=== PATIENT | female | born 1980 | race Caucasian/White ===

== ENCOUNTER 2017-05-08 00:13 | Emergency (ER) | payer MEDICAID ==
[2017-05-08 01:02] VITALS: TEMP 98.1
[2017-05-08] MEDS ORDERED: Morphine 2 mg/ml ISec IVP STA (01:10)
--- NOTE | 2017-05-08 01:13 | ED PDOC ---
Arrival/HPI - General Chief Complaint: Abdominal Pain Time Seen by Provider: 05/08/17 00:17 Historian: Patient - History of Present Illness Narrative History of Present Illness (Text): 05/08/17 01:12 A 36 year old female, whose past medical history includes hyperlipidemia, hypothyroidism and gastritis, presents to the emergency department complaining of epigastric abdominal discomfort radiating to her back, that developed this afternoon after eating. Patient notes some nausea but denies any shortness of breath, fever, chills, vomiting, diarrhea or any other complaints at this time. Symptom Onset: Sudden Symptom Course: Unchanged Activities at Onset: Rest Context: Home Past Medical History - Provider Review Nursing Documentation Reviewed: Yes - Infectious Disease Hx of Infectious Diseases: None - Psychiatric Hx Substance Use: No Family/Social History - Physician Review Nursing Documentation Reviewed: Yes Family/Social History: No Known Family HX Smoking Status: Never Smoked Hx Alcohol Use: No Hx Substance Use: No Allergies/Home Meds Allergies/Adverse Reactions: Allergies No Known Allergies Allergy (Verified 05/08/17 00:49) Review of Systems - Physician Review All systems were reviewed & negative as marked: Yes - Review of Systems Constitutional: absent: Fevers, Other (chills) Respiratory: absent: SOB Gastrointestinal: Abdominal Pain (epigastric discomfort radiating to back), Nausea. absent: Diarrhea, Vomiting Physical Exam Vital Signs Reviewed: Yes Vital Signs Temp Pulse Resp BP Pulse Ox 05/08/17 07:01 61 16 101/63 99 05/08/17 04:05 59 L 16 114/59 L 100 05/08/17 00:36 98.1 F 70 18 154/75 H 99 Temperature: Afebrile Blood Pressure: Hypertensive Pulse: Regular Respiratory Rate: Normal Appearance: Positive for: Well-Appearing, Non-Toxic, Comfortable Pain Distress: None Mental Status: Positive for: Alert and Oriented X 3 - Systems Exam Head: Present: Atraumatic, Normocephalic Pupils: Present: PERRL Extroacular Muscles: Present: EOMI Conjunctiva: Present: Normal Mouth: Present: Moist Mucous Membranes Neck: Present: Normal Range of Motion Respiratory/Chest: Present: Clear to Auscultation, Good Air Exchange. No: Respiratory Distress, Accessory Muscle Use Cardiovascular: Present: Regular Rate and Rhythm, Normal S1, S2. No: Murmurs Abdomen: Present: Tenderness (epigastric tenderness to palpation), Normal Bowel Sounds. No: Distention, Peritoneal Signs Back: Present: Normal Inspection Upper Extremity: Present: Normal Inspection. No: Cyanosis, Edema Lower Extremity: Present: Normal Inspection. No: Edema Neurological: Present: GCS=15, CN II-XII Intact, Speech Normal Skin: Present: Warm, Dry, Normal Color. No: Rashes Psychiatric: Present: Alert, Oriented x 3, Normal Insight, Normal Concentration Medical Decision Making ED Course and Treatment: 05/08/17 01:10 Impression: A 36 year old female with epigastric abdominal discomfort radiating to back. Plan: -- EKG -- chest xray -- US gallbladder and pancreas -- labs -- Urinalysis -- Reassess and disposition Progress Notes: 05/08/17 01:24 EKG: Ordered, reviewed, and independently interpreted the EKG. Rate : 60 BPM Rhythm : NSR Interpretation : normal intervals, normal EKG 05/08/17 02:57 chest xray: No acute process, as read by me. US Abdomen Limited, Right Upper Quadrant FINDINGS: Artifacts: Limited due to bowel gas shadowing. Limited due to shadowing from the ribs. Liver: The liver measures 22 cm. Limited evaluation of the liver due to shadowing. Echogenic fatty liver. Gallbladder: The gallbladder wall measures 1 mm. There is reverberation artifact.There was no right upper quadrant tenderness during the sonographic examination. Correlation with patient's pain medication status is recommended. No gallstones. Common bile duct: Prominent common bile duct measures 5 mm the patient's age. Pancreas: The pancreas is not well-seen. Echogenic pancreas. Right kidney: The right kidney measures 11.5 x 4.3 x 3.9 cm. No stones. No hydronephrosis. Aorta: The proximal aorta measures 1.8 cm. Inferior vena cava: IVC is seen. IMPRESSION: No acute findings. Dictated and Authenticated by: Jaki Castañeda MD 05/08/2017 3:15 AM Eastern Time ([place] & [place]) - Lab Interpretations Lab Results: 05/08/17 01:20 05/08/17 01:20 Lab Results 05/08/17 01:40: Urine Color Yellow, Urine Appearance Clear, Urine pH 6.5, Ur Specific [place] 1.015, Urine Protein Negative, Urine Glucose (UA) Negative, Urine Ketones Negative, Urine Blood Trace-intact H, Urine Nitrate Negative, Urine Bilirubin Negative, Urine Urobilinogen 0.2, Ur Leukocyte Esterase Negative , Urine RBC 1 - 3, Urine WBC 0 - 2, Ur Epithelial Cells 1 - 3, Urine HCG, Qual Negative 05/08/17 01:30: Lactate Dehydrogenase 592, Total Creatine Kinase 75, Troponin I < 0.01 05/08/17 01:20: PT 10.9, INR 0.96, APTT 29.8 05/08/17 01:20: WBC 9.1, RBC 4.74, Hgb 11.6 L, Hct 37.9, MCV 80.0, MCH 24.5 L, MCHC 30.6 L, RDW 16.2 H, Plt Count 215, MPV 10.0 05/08/17 01:20: Sodium 140, Potassium 5.1 H, Chloride 103, Carbon Dioxide 26, Anion Gap 16, BUN 17, Creatinine 0.8, Est GFR ( Amer) > 60, Est GFR (Non- Af Amer) > 60, Random Glucose 121 H, Calcium 9.6, Total Bilirubin 0.4, AST 33, ALT 41, Alkaline Phosphatase 71, Total Protein 7.3, Albumin 4.1, Globulin 3.3, Albumin/Globulin Ratio 1.3, Lipase 49 I have reviewed the lab results: Yes - RAD Interpretation Radiology Orders: 05/08/17 01:08 CHEST PORTABLE [RAD] Stat 05/08/17 01:09 GALLBLADDER & PANCREAS [US] Stat - EKG Interpretation Interpreted by ED Physician: Yes Type: 12 lead EKG - Medication Orders Current Medication Orders: Sodium Chloride (Sodium Chloride 0.9%) 1,000 mls @ 100 mls/hr IV .Q10H [facility] Last Admin: 05/08/17 01:26 Dose: 100 mls/hr eMAR Start Stop Document 05/08/17 01:26 CNR (Rec: 05/08/17 01:26 CNR [id number]) Intravenous Solution Start Date 05/08/17 Start Time 01:26 Discontinued Medications Famotidine (Pepcid) 20 mg IVP STAT STA Stop: 05/08/17 01:11 Last Admin: 05/08/17 01:26 Dose: 20 mg IVP Administration Document 05/08/17 01:26 CNR (Rec: 05/08/17 01:26 CNR [id number]) Charges for Administration # of IVP Administrations 1 Morphine Sulfate (Morphine) 2 mg IVP STAT STA Stop: 05/08/17 01:11 Last Admin: 05/08/17 01:24 Dose: 2 mg MAR Pain Assessment Document 05/08/17 01:24 CNR (Rec: 05/08/17 01:25 CNR [id number]) Pain Reassessment Is this a pain reassessment? Yes IVP Administration Document 05/08/17 01:24 CNR (Rec: 05/08/17 01:25 CNR [id number]) Charges for Administration # of IVP Administrations 1 Ondansetron HCl (Zofran Inj) 4 mg IVP ONCE ONE Stop: 05/08/17 01:11 Last Admin: 05/08/17 01:26 Dose: 4 mg IVP Administration Document 05/08/17 01:26 CNR (Rec: 05/08/17 01:26 CNR [id number]) Charges for Administration # of IVP Administrations 1 - Scribe Statement The provider has reviewed the documentation as recorded by the Jimmy Douglass Provider Scribe Attestation: All medical record entries made by the Scribe were at my direction and personally dictated by me. I have reviewed the chart and agree that the record accurately reflects my personal performance of the history, physical exam, medical decision making, and the department course for this patient. I have also personally directed, reviewed, and agree with the discharge instructions and disposition. Disposition/Present on Arrival - Present on Arrival Any Indicators Present on Arrival: No History of DVT/PE: No History of Uncontrolled Diabetes: No Urinary Catheter: No History of Decub. Ulcer: No History Surgical Site Infection Following: None - Disposition Have Diagnosis and Disposition been Completed?: Yes Diagnosis: Gastritis Disposition: HOME/ ROUTINE Disposition Time: 07:20 Patient Plan: Discharge Patient Problems: Current Active Problems Problem Status Onset Gastritis Acute Condition: GOOD Discharge Instructions (ExitCare): Gastritis (ED) Additional Instructions: Medication as prescribed/liquid diet today/advance diet slowly as olerated/ follow up with your doctor this week Prescriptions: Phenobarb/Hyoscy/Atropine/Scop [ Tablet] 16.2 mg PO Q6 PRN #12 tablet PRN Reason: Dyspepsia Ondansetron [Zofran Odt] 4 mg PO Q8 PRN #9 odt PRN Reason: Nausea/Vomiting Forms: [facility] (Ukrainian)
[2017-05-08] MEDS ORDERED: Sodium Chloride 0.9% 1,000 ML IV SCH (01:15)
[2017-05-08 01:33] LABS: HEMOGLOBIN 11.6 g/dL (12.0-16.0); MEAN CORPUSCULAR HEMOGLOBIN 24.5 pg (25.0-35.0); MEAN CORPUSCULAR HGB CONC 30.6 g/dl (31.0-37.0); RBC 4.74 10^6/uL (3.5-6.1); RED CELL DISTRIBUTION WIDTH 16.2 % (11.5-14.5); WHITE BLOOD COUNT 9.1 10^3/ul (4.5-11.0)
[2017-05-08 01:41] LABS: ALB/GLOB RATIO 1.3 (1.1-1.8); ALBUMIN 4.1 g/dL (3.0-4.8); ALT/SGPT 41 U/L (7-56); AST/SGOT 33 U/L (14-36); BLOOD UREA NITROGEN 17 mg/dL (7-21); CALCIUM 9.6 mg/dL (8.4-10.5); GFR AFRICAN-AMERICAN > 60; GFR NON-AFRICAN AMERICAN > 60; LIPASE 49 U/L (23-300)
[2017-05-08 01:43] LABS: INR 0.96 (0.93-1.08); PARTIAL THROMBOPLASTIN TIME 29.8 Seconds (25.1-36.5); PROTHROMBIN TIME 10.9 SECONDS (9.4-12.5)
[2017-05-08 01:57] LABS: PH,URINE 6.5 (4.7-8.0); URINE BILIRUBIN NEGATIVE (NEGATIVE); URINE BLOOD TRACE-INTACT (NEGATIVE); URINE GLUCOSE (UA) NEGATIVE (NEGATIVE); URINE LEUKOCYTE ESTERASE NEGATIVE Leu/uL (NEGATIVE); URINE NITRATE NEGATIVE (NEGATIVE); URINE PROTEIN NEGATIVE mg/dL (<30 mg/dL); URINE UROBILINOGEN 0.2 E.U./dL (<1 E.U./dL)
[2017-05-08 02:01] LABS: URINE APPEARANCE CLEAR (CLEAR); URINE COLOR YELLOW (YELLOW)
[2017-05-08 02:13] LABS: HCG,QUALITATIVE URINE NEGATIVE (NEGATIVE); URINE WBC 0 - 2 /hpf (0-6)
--- NOTE | 2017-05-08 03:15 | US ---
EXAM: US Abdomen Limited, Right Upper Quadrant CLINICAL HISTORY: 36 years old, female; Pain; Abdominal pain; Generalized TECHNIQUE: Real-time ultrasound of the right upper quadrant with image documentation. COMPARISON: No relevant prior studies available. FINDINGS: Artifacts: Limited due to bowel gas shadowing. Limited due to shadowing from the ribs. Liver: The liver measures 22 cm. Limited evaluation of the liver due to shadowing. Echogenic fatty liver. Gallbladder: The gallbladder wall measures 1 mm. There is reverberation artifact.There was no right upper quadrant tenderness during the sonographic examination. Correlation with patient's pain medication status is recommended. No gallstones. Common bile duct: Prominent common bile duct measures 5 mm the patient's age. Pancreas: The pancreas is not well-seen. Echogenic pancreas. Right kidney: The right kidney measures 11.5 x 4.3 x 3.9 cm. No stones. No hydronephrosis. Aorta: The proximal aorta measures 1.8 cm. Inferior vena cava: IVC is seen. IMPRESSION: No acute findings.
[2017-05-08 04:06] VITALS: RESP 16
[2017-05-08 06:41] LABS: TROPONIN I < 0.01 ng/mL
[2017-05-08 07:02] VITALS: BP 101/63; PULSE 61; O2SAT 99
--- NOTE | 2017-05-08 09:08 | RAD ---
HISTORY: epigastric pain COMPARISON: No prior. FINDINGS: LUNGS: The lungs are well inflated and clear. PLEURA: No significant pleural effusion identified, no pneumothorax apparent. CARDIOVASCULAR: Normal. OSSEOUS STRUCTURES: No significant abnormalities. VISUALIZED UPPER ABDOMEN: Normal. OTHER FINDINGS: None. IMPRESSION: No active pulmonary disease.
--- NOTE | 2017-05-08 10:19 | CARD ---
APPROVED REPORT EKG Measurement Heart [id number] <Conclusion> Normal sinus rhythm STTW changes c/w ischemia Prolonged QTc
== END 2017-05-08 07:43 | disposition home or self-care (01) ==
LOC: ED 00:13
DX: K29.70 Gastritis, unspecified, without bleeding (principal)
CPT/HCPCS: 71045; 76705; 80053; 81001; 82550; 83615; 83690; 84484; 84703; 85027; 85610; 85730; 93005; 96374; 96375; 99284; J2270; J2405; J7040

== ENCOUNTER 2018-02-10 20:05 | Emergency (ER) | payer MEDICAID ==
[2018-02-10 20:14] VITALS: BMI 39.1
--- NOTE | 2018-02-10 20:17 | ED PDOC ---
Arrival/HPI - General Time Seen by Provider: 02/10/18 20:14 Historian: Patient - History of Present Illness Narrative History of Present Illness (Text): 02/10/18 20:14 37 y/o female, no significant pmh, nkda, c/o lt. shoulder injury x 1 hour. Pt. stated that she was in the shower, slipped, landed on the left shoulder, no head/neck/back/rib injury, no LOC, no night sweat, no dizziness, no change in vision, no numbness or tingling, no palpitation, no cardiopulmonary complaints prior to the fall, no other medical or psychological complaints. Past Medical History - Provider Review Nursing Documentation Reviewed: Yes - Infectious Disease Hx of Infectious Diseases: None - Psychiatric Hx Substance Use: No Family/Social History - Physician Review Nursing Documentation Reviewed: Yes Family/Social History: Unknown Family HX Smoking Status: Never Smoked Hx Alcohol Use: No Hx Substance Use: No Allergies/Home Meds Allergies/Adverse Reactions: Allergies No Known Allergies Allergy (Verified 05/08/17 00:49) Review of Systems - Review of Systems Constitutional: absent: Fatigue, Fevers Eyes: absent: Vision Changes ENT: absent: Hearing Changes Respiratory: absent: SOB, Cough Cardiovascular: absent: Chest Pain Gastrointestinal: absent: Abdominal Pain, Nausea, Vomiting Musculoskeletal: Arthralgias. absent: Back Pain, Neck Pain, Joint Swelling, Myalgias Skin: absent: Rash, Pruritis, Skin Lesions Psychiatric: absent: Anxiety, Depression, Suicidal Ideation Physical Exam Vital Signs Reviewed: Yes Temperature: Afebrile Blood Pressure: Hypertensive Pulse: Tachycardic Respiratory Rate: Normal Appearance: Positive for: Well-Appearing, Non-Toxic Pain Distress: Severe Mental Status: Positive for: Alert and Oriented X 3 - Systems Exam Head: Present: Atraumatic, Normocephalic, Other (no facial bony tenderness). No: Tenderness, Contusion, Swelling, Ecchymosis, Abrasion, Laceration Pupils: Present: PERRL Extroacular Muscles: Present: EOMI Conjunctiva: Present: Normal Ears: Present: NORMAL TM, Normal Canal. No: Erythema Mouth: Present: Moist Mucous Membranes Pharnyx: Present: Normal. No: ERYTHEMA, EXUDATE, TONSILS ENLARGED Nose (External): Present: Atraumatic. No: Abrasion, Contusion, Laceration, Lesions Nose (Internal): Present: Normal Inspection, No Active Bleeding. No: Rhinorrhea, Septal Hematoma, Epistaxis Neck: Present: Normal Range of Motion, Trachea Midline. No: Meningeal Signs, MIDLINE TENDERNESS, Paraspinal Tenderness, Lymphadenopathy Respiratory/Chest: Present: Clear to Auscultation, Good Air Exchange. No: Respiratory Distress, Accessory Muscle Use, Wheezes, Decreased Breath Sounds, Rales, Retracting, Rhonchi, Tachypneic, Tender to Palpation Cardiovascular: Present: Regular Rate and Rhythm, Normal S1, S2. No: Murmurs Abdomen: No: Tenderness, Distention, Peritoneal Signs, Rebound, Guarding Back: Present: Normal Inspection. No: CVA Tenderness, Midline Tenderness, Paraspinal Tenderness, Pain with Leg Raise, Decubitus Ulcer Upper Extremity: Present: Normal Inspection, NORMAL PULSES, Neurovascularly Intact, Capillary Refill < 2s, Other (LUE: +ttp on the lateral aspect of the left shoulder, no swelling, no humerus/elbow/forearm/wrist/scaphoid/hand/finger tenderness, sensation intact, motor 5/5, FROM without limitation except painful lt. shoulder movement, sensation intact, motor 5/5, +radial pulse, capillary refill< 2 seconds, neurovascular intact. ). No: Cyanosis, Edema, Erythema, Def ormity Lower Extremity: Present: Normal Inspection, NORMAL PULSES, Normal ROM, Neurovascularly Intact, Capillary Refill < 2 s. No: Edema, Tenderness, Swelling, Deformity Neurological: Present: GCS=15, CN II-XII Intact, Speech Normal, Motor Func Grossly Intact, Gait Normal, Memory Normal Skin: Present: Warm, Dry, Normal Color. No: Rashes Psychiatric: Present: Alert, Oriented x 3, Normal Insight, Normal Concentration Medical Decision Making ED Course and Treatment: 02/10/18 20:22 -Urine hcg -Toradol IM/percocet -Lt. shoulder xray -Observe and reassess 02/10/18 21:32 -Urine hcg is negative -Lt. shoulder xray ER wet read show no fracture/dislocation -Sling applied, discussed with the patient about the ER wet read, pain improved, will discharge home -Discharge home with naproxen, sling, ice compression, follow up with your own pmd and orthopedic within 2 days, return to the ER for any new or worsening signs or symptoms. - RAD Interpretation Radiology Orders: Lt. shoulder xray: normal radiographs of the left shoulder. Front End Driver: Radiologist - PA / DRAWING KILN OPERATOR / Resident Statement / has reviewed & agrees with the documentation as recorded. Disposition/Present on Arrival - Present on Arrival Any Indicators Present on Arrival: No History of DVT/PE: No History of Uncontrolled Diabetes: No Urinary Catheter: No History of Decub. Ulcer: No History Surgical Site Infection Following: None - Disposition Have Diagnosis and Disposition been Completed?: Yes Diagnosis: Shoulder injury, Shoulder pain Disposition: HOME/ ROUTINE Disposition Time: 21:35 Patient Plan: Discharge Condition: IMPROVED Additional Instructions: -Discharge home with naproxen, sling, ice compression, follow up with your own pmd and orthopedic within 2 days, return to the ER for any new or worsening signs or symptoms. Prescriptions: Naproxen 500 mg PO BID PRN #20 tab PRN Reason: Other Referrals: Norberto Hernández DO [Staff Provider] - Follow up with primary [facility] [Outside] - Follow up with primary Forms: WORK NOTE
[2018-02-10] MEDS ORDERED: Oxycodone/Acetaminophen 5/325 mg Tab PO STA (20:18)
[2018-02-10 20:19] VITALS: TEMP 97.6
[2018-02-10 21:34] VITALS: BP 135/82; RESP 18; O2SAT 100
[2018-02-10 21:53] VITALS: PULSE 98
--- NOTE | 2018-02-11 10:32 | RAD ---
Date of service: 02/10/2018 PROCEDURE: Radiographs of the Left Shoulder HISTORY: lt. shoulder injury from fall COMPARISON: No prior. FINDINGS: BONES: Normal. No fracture. JOINTS: Normal. Glenohumeral and acromioclavicular joints preserved. No osteoarthritis. SOFT TISSUES: Normal. OTHER FINDINGS: None. IMPRESSION: Normal radiographs of the left shoulder. Concordant results with the preliminary interpretation rendered by the emergency department physician procedure.
== END 2018-02-10 21:50 | disposition home or self-care (01) ==
LOC: ED 20:05
DX: S49.92XA Unspecified injury of left shoulder and upper arm, initial encounter (principal); W18.2XXA Fall in (into) shower or empty bathtub, initial encounter; Y93.E1 Activity, personal bathing and showering; M25.512 Pain in left shoulder
CPT/HCPCS: 73030; 96372; 99283; J1885